=== PATIENT | female | born 1990 | race Two or more races ===

== ENCOUNTER 2018-03-03 20:24 | Emergency (ER) | payer OTHER, BC ==
[2018-03-03 21:45] LABS: BILIRUBIN,URINE SMALL (NEG); CLARITY,URINE CLEAR; COLOR,URINE YELLOW; GLUCOSE,URINE NEGATIVE (NEG); NITRITE,URINE NEGATIVE (NEG); PROTEIN,URINE NEGATIVE (NEG-TRACE); UROBILINOGEN,URINE 0.2 mg/dL (0.2 mg/dL)
[2018-03-03 21:45] LABS: URINE HCG POC HCG NEGATIVE (Negative)
[2018-03-03 21:50] LABS: BACTERIA,URINE FEW /HPF (0-FEW); RBC,URINE 0 /HPF (0-2); WBC,URINE OCC /HPF (0-4)
[2018-03-03 21:51] LABS: BASO # 0.1 x10^3/uL (0.0-0.2); BASO % 1 % (0-3); EOS % 0 % (0-3); HEMATOCRIT 43.6 % (36.0-47.0); HEMOGLOBIN 14.8 g/dL (12.0-15.5); LYMPH # 1.2 x10^3/uL (1.0-4.8); LYMPH % 8 % (24-48); MEAN CORPUSCULAR HEMOGLOBIN 31 pg (25-35); MEAN CORPUSCULAR HGB CONC 34 g/dL (31-37); MEAN CORPUSCULAR VOLUME 91 fL (79-100); MONO # 0.5 x10^3/uL (0.0-1.1); MONO % 4 % (0-9); NEUT # 12.4 x10^3uL (1.8-7.7); NEUT % 87 % (31-73); PLATELET COUNT 342 x10^3/uL (140-400); RED BLOOD COUNT 4.82 x10^6/uL (3.50-5.40); RED CELL DISTRIBUTION WIDTH 13.2 % (11.5-14.5); SQUAMOUS EPITHELIAL CELL,UR FEW /LPF; WHITE BLOOD COUNT 14.2 x10^3/uL (4.0-11.0)
[2018-03-03 21:53] LABS: ADD MAN DIFF? YES
[2018-03-03 22:01] LABS: ANION GAP 12 (6-14); BARBITURATES NEG (NEG); BENZODIAZEPINES NEG (NEG); BLOOD UREA NITROGEN 26 mg/dL (7-20); BUN/CREATININE RATIO 33 (6-20); CANNABINOIDS POS (NEG); CARBON DIOXIDE 27 mmol/L (21-32); CHLORIDE 101 mmol/L (98-107); COCAINE NEG (NEG); CREATININE 0.8 mg/dL (0.6-1.0); GFR 87.4; GLUCOSE 93 mg/dL (70-99); METHADONE NEG (NEG); OPIATES NEG (NEG); PHENCYCLIDINE NEG (NEG); POTASSIUM 4.3 mmol/L (3.5-5.1); SODIUM 140 mmol/L (136-145)
[2018-03-03 22:03] LABS: AMPHETAMINE/METHAMPHETAMINE NEG (NEG); ETHANOL, URINE NEG (NEG)
[2018-03-03 22:04] LABS: ETHANOL < 10 mg/dL (0-10)
[2018-03-03 22:07] LABS: ALBUMIN 4.4 g/dL (3.4-5.0); ALBUMIN/GLOBULIN RATIO 1.3 (1.0-1.7); ALK PHOS 84 U/L (46-116); ALT (SGPT) 68 U/L (14-59); AST (SGOT) 56 U/L (15-37); LIPASE 152 U/L (73-393); TOTAL BILIRUBIN 0.5 mg/dL (0.2-1.0); TOTAL PROTEIN 7.9 g/dL (6.4-8.2)
[2018-03-03 22:15] LABS: % BANDS 3 % (0-9); % BASOS 1 % (0-3); % LYMPHS 10 % (24-48); % MONOS 3 % (0-10); % SEGS 83 % (35-66); PLT ESTIMATE ADEQUATE (ADEQUATE)
[2018-03-03] MEDS: KETOROLAC 30 MG/ML INJ. IV (22:19)
[2018-03-03] MEDS: ONDANSETRON PF 4 MG/2 ML VIAL. IV (22:20)
[2018-03-03] MEDS: PANTOPRAZOLE IV PUSH 40 MG VIAL. IVP (22:20)
[2018-03-03] MEDS: IV NORMAL SALINE 1000ML BAG 1,000 ML IV (22:20)
[2018-03-03] MEDS: SIMETHICONE 80 MG TAB.CHEW PO (23:30)
== END 2018-03-03 23:30 | disposition home or self-care (01) ==
LOC: ER 23:30
DX: R14.1 Gas pain (principal); R74.0 Nonspecific elevation of levels of transaminase and lactic acid dehydrogenase [LDH]; K59.00 Constipation, unspecified; R11.0 Nausea; J45.909 Unspecified asthma, uncomplicated; Z88.5 Allergy status to narcotic agent
CPT/HCPCS: 36415; 74022; 76700; 80053; 80307; 81001; 81025; 83690; 85007; 85025; 96374; 96375; 99285-25; C9113; G0480; J1885; J2405; J7030